=== PATIENT | female | born 1960 | race Caucasian/White ===

== ENCOUNTER 2017-08-04 22:06 | Emergency (ER) | payer MEDICARE, OTHER ==
[~2017-08-04] VITALS: Ht 167.6 cm; Wt 108.9 kg
--- NOTE | ~2017-08-04 | CR172 ---
[facility] A Service of [facility] & [facility] RADIOLOGY TEXT RESULTS PATIENT: MARY DOOLEY LOCATION: [facility] : 62 UNIT #: [id number] AGE: [address]: Kaylynn Fernandez APRN SEX: F ORDER DR: [id number] [facility] [address] [place], [place] [address] [id number] MR#: [id number] Acc #: [id number] NAME: MARY DOOLEY : 1960 SEX: F STUDY DATE/TIME: 08/05/2017 0:43 UNIT: [facility] ROOM: STUDY DESCRIPTION: CR Knee 3 Views Lt Attending Physician: Kaylynn Fernandez A.P.R.N. Ordering Physician: Kaylynn Fernandez A.P.R.N. Primary Care Physician: Primary Care Physician No MEDICAL IMAGING REPORT This report is preliminary unless electronic signature is present EXAM Left knee, 08/05/2017 HISTORY 56-year-old female in the ED complaining of persistent left knee pain after a fall onto the left knee 3 weeks ago. TECHNIQUE Three-view left knee series. FINDINGS Examination shows mild prepatellar soft tissue swelling and a small knee joint effusion. No fracture, dislocation or other acute osseous abnormality is demonstrated. IMPRESSION 1. No acute osseous abnormality. 2. Prepatellar soft tissue swelling. Small knee joint effusion. Dictated by... Rad Hollis M.D. THIS IS AN ELECTRONICALLY VERIFIED REPORT Rad Hollis M.D. at 08/06/2017 6:02 AM PATRICK/jaydon TD: 08/06/2017 02:02 JOB #: [id number] MEDICAL IMAGING REPORT Page 1 of 1 COPY
[2017-08-04] MEDS ORDERED: ZYPREXA (22:42)
[2017-08-04] MEDS ORDERED: KLONOPIN1 MG (22:42)
[2017-08-04] MEDS ORDERED: CELEXA20 MG (22:42)
[2017-08-04] MEDS ORDERED: PHENERGAN25 MG (22:43)
== END 2017-08-05 02:30 | disposition home or self-care (01) ==
LOC: CED 22:06
DX: S80.02XA Contusion of left knee, initial encounter (principal); F41.9 Anxiety disorder, unspecified; F17.200 Nicotine dependence, unspecified, uncomplicated; W19.XXXA Unspecified fall, initial encounter; Y92.009 Unspecified place in unspecified non-institutional (private) residence as the place of occurrence of the external cause
CPT/HCPCS: 29530; 73562; 94640; 99284